=== PATIENT | male | born 1985 | race American Indian/Alaskan Native ===

== ENCOUNTER 2018-01-16 21:47 | Emergency (ER) | payer SELFPAY ==
--- NOTE | 2018-01-16 22:56 | XRay Report ---
FINAL REPORT EXAM: XR SPINE LUMBOSACRAL 2-3V HISTORY: pain/numbess radiating pain r/t injury TECHNIQUE: Lumbar spine 3 views PRIORS: None. FINDINGS: Vertebral bodies demonstrate normal height and alignment. The disc spaces are within normal limits. There is no evidence of spondylolisthesis. Transverse and spinous processes are intact SI joints are unremarkable. IMPRESSION: Negative lumbar spine series
--- NOTE | 2018-01-17 02:44 | Emergency Department Report ---
ED Back Pain/Injury HPI - General Chief Complaint: Back Pain/Injury Stated Complaint: LOWER BACK PAIN Time Seen by Provider: 01/17/18 00:47 Source: patient, family Limitations: No Limitations - History of Present Illness Initial Comments: Patient reported that he has been having in back pain and he has a history of injury at age 19 and he is having pain radiating down his right buttocks and thigh. He said he had similar incident in the past. Blood pressure is 158/101 and he denies any history of high blood pressure. Patient says that he had a MRI after his injury and it didn't show any abnormalities. He said he has chronic back pain on the right side. Denies any urinary burning frequency or urgency. He says his pain is 10 out of 10 today after trying to bend over and pick something up. Denies any loss of bowel or bladder function. Denies any urinary burning frequency or urgency. Denies any fall. Denies any abdominal pain. Denies any fever or chills. Pain is achy and radiating down his right lower extremity and worse with walking and better with rest. He states that he took Goody powder but it didn't help his pain. MD Complaint: back pain Onset/Timin -: year(s) Similar Symptoms Previously: Yes (worse after bending over to pick something up. ) Place: home Severity: severe Severity scale (0 -10): 10 Quality: aching Consistency: constant Improves With: immobilization, eating Worsens With: movement, walking Context: bending Associated Symptoms: denies: confusion, weakness, chest pain, numbness, difficulty walking, cough, difficulty urinating, diaphoresis, incontinence, fever/chills, constipation, headaches, abdominal pain, loss of appetite, malaise , nausea/vomiting, rash, seizure, shortness of breath, syncope Treatments Prior to Arrival: other medications - Related Data Previous Rx's Medication Instructions Recorded Last Taken Type Cyclobenzaprine [Flexeril] 10 mg PO TID PRN #12 tablet 01/17/18 Unknown Rx Ibuprofen [Motrin] 600 mg PO Q8H PRN #15 tablet 01/17/18 Unknown Rx Allergies Allergy/AdvReac Type Severity Reaction Status Date / Time No Known Allergies Allergy Unverified 01/16/18 22:23 ED Review of Systems ROS: Stated complaint: LOWER BACK PAIN Other details as noted in HPI Constitutional: denies: chills, fever Eyes: denies: eye pain, eye discharge, vision change ENT: denies: ear pain, throat pain Respiratory: denies: cough, orthopnea, shortness of breath, SOB with exertion, SOB at rest, stridor, wheezing Cardiovascular: denies: chest pain, palpitations, dyspnea on exertion, edema, syncope (Goody powder), paroxysmal nocturnal dyspnea Gastrointestinal: denies: abdominal pain, nausea, vomiting, diarrhea, constipation, hematemesis, melena, hematochezia Genitourinary: denies: urgency, dysuria Musculoskeletal: back pain, arthralgia. denies: joint swelling, myalgia Skin: denies: rash, lesions Neurological: denies: headache, weakness, numbness, paresthesias, confusion, abnormal gait, vertigo ED Past Medical Hx - Past Medical History Previous Medical History?: Yes Additional medical history: Chronic lower back pain from age 19 secondary to injury - Surgical History Past Surgical History?: No - Family History Family history: hypertension - Social History Smoking Status: Current Every Day Smoker Substance Use Type: Alcohol Other Social History: and lives with family - Medications Home Medications: Home Medications Medication Instructions Recorded Confirmed Last Taken Type Cyclobenzaprine [Flexeril] 10 mg PO TID PRN #12 tablet 01/17/18 Unknown Rx Ibuprofen [Motrin] 600 mg PO Q8H PRN #15 tablet 01/17/18 Unknown Rx ED Physical Exam - General Limitations: No Limitations General appearance: alert, in no apparent distress - Head Head exam: Present: atraumatic, normocephalic, normal inspection - Eye Eye exam: Present: normal appearance, PERRL, EOMI Pupils: Present: normal accommodation - ENT ENT exam: Present: normal exam, normal orophraynx, mucous membranes moist - Neck Neck exam: Present: normal inspection, tenderness, full ROM, other (no C-spine tenderness). Absent: lymphadenopathy - Respiratory Respiratory exam: Present: normal lung sounds bilaterally. Absent: respiratory distress, chest wall tenderness, accessory muscle use - Cardiovascular Cardiovascular Exam: Present: regular rate, normal rhythm, normal heart sounds. Absent: systolic murmur, diastolic murmur - GI/Abdominal GI/Abdominal exam: Present: soft, normal bowel sounds. Absent: distended, tenderness, guarding, rebound, rigid, organomegaly, mass, bruit, pulsatile mass , hernia - Rectal Rectal exam: Present: deferred - Extremities Exam Extremities exam: Present: normal inspection, full ROM, normal capillary refill , other (no clubbing, cyanosis or edema. +2 pulses to all extremities and no neurovascular compromise). Absent: tenderness, pedal edema, joint swelling, calf tenderness - Back Exam Back exam: Present: normal inspection, full ROM, other (plates without any difficulties). Absent: tenderness, CVA tenderness (R), CVA tenderness (L), muscle spasm, paraspinal tenderness, vertebral tenderness, rash noted - Neurological Exam Neurological exam: Present: alert, oriented X3, normal gait, reflexes normal. Absent: motor sensory deficit - Expanded Neurological Exam Expanded Neurological exam: Absent: innattentive, memory loss-remote event, memory loss- recent event, ataxia, receptive aphasia, expressive aphasia, total aphasia, tremor, protecting the airway Patient oriented to: Present: person, place, time Speech: Present: fluid speech Cranial nerves: EOM's Intact: Normal, Gag Reflex: Normal, Tongue Deviation: Normal, Nystagmus: Normal, Facial Sensation: Normal Cerebellar function: Romberg: Normal Upper motor neuron: Pronator Drift: Normal, Sensory Extinction: Normal Sensory exam: Upper Extremity Light Touch: Normal, Upper Extremity Temperature: Normal, UE 2 Point Discrimination: Normal, Lower Extremity Light Touch: Normal, Lower Extremity Pin Prick: Normal, LE 2 Point Discrimination: Normal Motor strength exam: RUE: 5, LUE: 5, RLE: 5, LLE: 5 DTR: bicep (R): 2+, bicep (L): 2+, tricep (R): 2+, tricep (L): 2+, knee (R): 2+ , knee (L): 2+, ankle (R): 2+, ankle (L): 2+ Best Eye Response ([place]): (4) open spontaneously Best Motor Response ([place]): (6) obeys commands Best Verbal Response ([place]): (5) oriented [place] Total: 15 - Psychiatric Psychiatric exam: Present: normal affect, normal mood - Skin Skin exam: Present: warm, dry, intact, normal color. Absent: rash ED Course Vital Signs 01/16/18 01/17/18 22:19 03:48 Temperature 98.1 F 98.8 F Pulse Rate 66 54 L Respiratory 16 16 Rate Blood Pressure 158/101 Blood Pressure 134/94 [Right] O2 Sat by Pulse 100 100 Oximetry - Reevaluation(s) Reevaluation #1: 01/17/18 03:34 Patient given [place] 5/325 2 tablets by mouth and Flexeril 10 mg when necessary emergency room. He voiced relief of back pain and his blood pressure is stable. ED Medical Decision Making - Radiology Data Radiology results: report reviewed X-rays lumbar spine reveals no acute findings. See below for detailed information Findings [facility] [address] [place] [address] XRay Report Signed Patient: MICHELLE HARE MR#: [id number] : 1985 Acct:[id number] Age/Sex: 32 / M ADM Date: 01/16/18 Loc: ED Attending Dr: Ordering Physician: ANDREIA FOSTER MD Date of Service: 01/16/18 Procedure(s): XR spine lumbosacral 2-3V Accession Number(s): [id number] cc: ED MD CRISTIAN Fluoro Time In Minutes: FINAL REPORT EXAM: XR SPINE LUMBOSACRAL 2-3V HISTORY: pain/numbess radiating pain r/t injury TECHNIQUE: Lumbar spine 3 views PRIORS: None. FINDINGS: Vertebral bodies demonstrate normal height and alignment. The disc spaces are within normal limits. There is no evidence of spondylolisthesis. Transverse and spinous processes are intact SI joints are unremarkable. IMPRESSION: Negative lumbar spine series Transcribed By: DAYLIN Dictated By: HERNAN REAL MD Electronically Authenticated By: HERNAN REAL MD Signed Date/Time: 01/16/182250 DD/ 50 TD/TT: 01/16/182250 - Medical Decision Making ED course: Patient here reports that he has a history of chronic back pain from injury at age 19 which she had a MRI didn't show any abnormalities. Patient said his back pain flared up after he was bending over to pick something up. He is reporting pain to the right side of his back that is radiating down to his right thigh with some numbness which she is had similar episode in the past. Patient taking Goody Potter at home without any relief. X-ray of lumbar spine reveals no acute or subacute findings. Patient was given [place] 5/325 2 tablets and Flexeril 10 mg by mouth for back pain and had good relief of pain. Patient does not have a primary care and is requesting to be referred to her primary care. I told him that he will need to start seen a primary care doctor and to keep a log his blood pressure and take to primary care visit with them and if need be thick and manage his back pain or can refer him for specialist to manage his chronic back pain. Patient with acute exacerbation of chronic lower back pain. He voiced understanding of discharge instruction, x-ray findings and need to follow-up. Patient discharged home a prescription for Flexeril and Motrin. Patient blood pressure is stable. Critical care attestation.: If time is entered above; I have spent that time in minutes in the direct care of this critically ill patient, excluding procedure time. ED Disposition Clinical Impression: Acute exacerbation of chronic low back pain, Lumbar radiculopathy, chronic, Blood pressure elevated without history of HTN Disposition: TO HOME OR SELFCARE Is pt being admited?: No Does the pt Need Aspirin: No Condition: Stable Instructions: Lumbar Radiculopathy (ED), Low Sodium Diet (ED), Hypertension (ED ), Back Pain (ED) Additional Instructions: You can take Motrin and Flexeril for back pain as prescribed please do not drive or operate heavy machinery while taking Flexeril as this medication causes drowsiness Please follow up with primary care physician as instructed. Keep a lot of few blood pressure and take to primary care visit with you for evaluation. Prescriptions: Cyclobenzaprine [Flexeril] 10 mg PO TID PRN #12 tablet PRN Reason: low back pain Ibuprofen [Motrin] 600 mg PO Q8H PRN #15 tablet PRN Reason: Pain Referrals: LEIF HARVEY MD [Staff Physician] - 01/19/18 Forms: Accompanied Note, Work/School Release Form(ED)
[2018-01-17] MEDS ORDERED: NORCO 5/325 PO ONE (03:05)
[2018-01-17] MEDS ORDERED: FLEXERIL PO ONE (03:05)
[2018-01-17 03:50] VITALS: BP 134/94
== END 2018-01-17 03:48 | disposition home or self-care (01) ==
LOC: ED 21:47
DX: M54.16 Radiculopathy, lumbar region (principal); G89.29 Other chronic pain; R03.0 Elevated blood-pressure reading, without diagnosis of hypertension; F17.200 Nicotine dependence, unspecified, uncomplicated
CPT/HCPCS: 72100; 99283